=== PATIENT | female | born 1950 | race Caucasian/White ===

== ENCOUNTER → 2017-06-28 | Outpatient (CLI) | payer OTHER ==
--- NOTE | 2017-06-28 14:06 | RAD ---
DATE: 06/28/2017 EXAM: MAMMO ANALI DIAG BILAT HISTORY: Left breast pain. The history of left breast malignancy is noted. COMPARISON: 09/16/2016 FINDINGS: Breast Density: FATTY The Breast Parenchyma is primarily fatty replaced. Breast parenchyma level density A.. Postoperative/therapeutic changes are noted in the left breast. Benign-appearing calcifications are noted in the left breast. No mass or suspect calcifications are seen in the breast. There has not been a significant change in the appearance of the breasts when compared to the previous exam. IMPRESSION: Benign findings BI-RADS CATEGORY: 2 BENIGN FINDING(S) RECOMMENDED FOLLOW-UP: 12M 12 MONTH FOLLOW-UP PQRS compliance statement: Patient information was entered into a reminder system with a target due date 06/28/2017 for the next mammogram. Mammography is a sensitive method for finding small breast cancers, but it does not detect them all and is not a substitute for careful clinical examination. A negative mammogram does not negate a clinically suspicious finding and should not result in delay in biopsying a clinically suspicious abnormality. "Our facility is accredited by the [employer] Mammography Program."
--- NOTE | 2017-06-28 14:20 | RAD ---
Indication pain. The area of pain in the left breast was examined. No abnormality, either cystic or solid, is seen in the area examined. IMPRESSION: Normal targeted ultrasound left breast. BI-RADS 2. Benign findings
== END | disposition home or self-care (01) ==
LOC: KCIC MAMMO 12:39
PROVIDERS: ATTEND Family Medicine
DX: N64.4 Mastodynia (principal); Z85.3 Personal history of malignant neoplasm of breast
CPT/HCPCS: 76641; G0204; G0279; 77062; 77066

== ENCOUNTER → 2018-10-18 | Outpatient (CLI) | payer MEDICARE ==
--- NOTE | 2018-10-18 16:24 | RAD ---
FDG tumor localization scan, PET/CT, 10/18/2018: History: Staging left breast cancer Following IV injection of 15.9 mCi of 18 F-FDG, imaging was performed from the skull base to the proximal thighs. The noncontrast CT component was performed for attenuation correction and anatomic localization purposes rather than for primary diagnosis diagnosis. The patient's blood glucose level at the time of injection was 83 MG/DL. Physiologic activity is evident in the neck. No hypermetabolic neck lesion is seen. No abnormal pulmonary FDG uptake is seen. Slightly prominent activity at both talib is similar to the mediastinal background. No definite hypermetabolic mediastinal or hilar adenopathy is seen. Physiologic activity is present in the GI tract and urinary tract. No hypermetabolic abdominal or pelvic lesion is seen. Incidental CT findings include the presence of a 2 cm exophytic nodule arising from the posterior aspect of the left lobe of the thyroid gland. It demonstrates only low level FDG uptake with a maximum measured view of 2.4, similar to the remainder of the gland. Several sigmoid diverticula are noted. There is a mild lumbar scoliosis with moderate multilevel degenerative change. IMPRESSION: No FDG-PET evidence of metastatic disease.
== END | disposition home or self-care (01) ==
LOC: PETSC 11:10
PROVIDERS: ATTEND Internal Medicine Hematology & Oncology
DX: K57.30 Diverticulosis of large intestine without perforation or abscess without bleeding (principal); M41.86 Other forms of scoliosis, lumbar region; E04.1 Nontoxic single thyroid nodule; Z85.3 Personal history of malignant neoplasm of breast
CPT/HCPCS: 78815; A9552